=== PATIENT | male | born 1965 | race American Indian/Alaskan Native ===

== ENCOUNTER 2017-07-30 16:07 | Emergency (ER) | payer SELFPAY | END 2017-07-30 16:40 | disposition left against medical advice (07) | LOC: ED 16:07 | DX: M25.579 Pain in unspecified ankle and joints of unspecified foot (principal); Z53.21 Procedure and treatment not carried out due to patient leaving prior to being seen by health care provider ==

== ENCOUNTER 2019-01-23 10:19 | Day surgery (SDC) | payer MEDICAID ==
[~2019-01-23 10:19] MED LIST: NACL 0.9% 1000 ML 1,000 ML IV SCH
[2019-01-23] MEDS ORDERED: WATER FOR IRRIG STERILE ONE (10:59)
[2019-01-23] MEDS ORDERED: WATER FOR IRRIG STERILE IR ONE (10:59)
--- NOTE | 2019-01-23 12:38 | Anesthesia Consultation ---
Anesthesia Consult and Med Hx Date of service: 01/23/19 - Airway Anesthetic Teeth Evaluation: Good ROM Head & Neck: Adequate Mental/Hyoid Distance: Adequate Mallampati Class: Class III Intubation Access Assessment: Possibly Difficult - Pulmonary Exam CTA: Yes - Cardiac Exam Cardiac Exam: RRR - Pre-Operative Health Status ASA Pre-Surgery Classification: ASA3 Proposed Anesthetic Plan: MAC - Pulmonary Hx Asthma: Yes (last inhaler use 2 days ago, prn) SOB: Yes Home Oxygen Therapy: Yes (2.5L as needed) Hx Sleep Apnea: Yes (cpap) - Cardiovascular System Hx Hypertension: Yes (CHF ) - Central Nervous System CVA: Yes (Right side weakness) - Other Systems Hx Obesity: Yes
--- NOTE | 2019-01-23 12:39 | Anesthesia Day of Surgery ---
Anesthesia Day of Surgery - Day of Surgery Patient Examined: Yes Patient H&P Reviewed: Yes Patient is NPO: Yes Beta Blockers: Yes
[2019-01-23] MEDS ORDERED: DIPRIVAN 10 MG/ML IV ONE ×2 (12:42)
--- NOTE | 2019-01-23 13:25 | Discharge Summary ---
Short Stay Discharge Plan Activity: advance as tolerated Weight Bearing Status: Weight Bear as Tolerated Diet: regular Follow up with: PABLO ALICEA MD [Primary Care Provider] - 7 Days
--- NOTE | 2019-01-23 13:25 | Operative Report ---
Operative Report Operative Report: Date of procedure: 01/23/2019 Procedure: Colonoscopy with hot biopsy polypectomy. Attending physician: Matthew Ramsey MD Hr Receptionist: Matthew Ramsey MD Indication: Patient is a 53-year-old male who presents for colonoscopy, because of history of recurrent rectal bleeding and blood in stool. A colonoscopy serves to evaluate patient for colorectal cancer screening.. Consent: Informed consent was obtained after advising the patient and family regarding nature of this procedure, its indications, potential benefits as well as possible complications including but not limited to bleeding perforation and adverse reaction to medication, infection as well as other cardiopulmonary complications. An informed written and verbal consent was then obtained after due opportunity was provided for questions and answers. Monitoring: Patient was monitored continuously with pulse oximetry and electrocardiographic recordings as well as blood pressure recordings. Vital signs remained stable throughout this procedure with no untoward events. Preoperative assessment: Patient was assessed immediately prior to this procedure for capacity to tolerate monitored anesthesia care and moderate sedation as well as general anesthesia. Patient's ASA classification is 2, Mallampati class is 2, Hyomental distance is 3. Instrument: [employer] video colonoscope Medications: Propofol given intravenously in divided doses. For details please refer to anesthesia records. Description of procedure: Patient was placed in the left lateral decubitus position after achieving sedation, a digital rectal examination was performed following which the colonoscope was introduced into the anal verge and advanced to the cecum which was identified by the ileocecal valve, the appendiceal orifice, as well as by the cecal strap and direct transillumination. The colonoscope was subsequently withdrawn with careful inspection of all mucosal surfaces. Patient tolerated this procedure well and was subsequently taken to the recovery room. The following findings were noted. Findings: The colon was moderately tortuous. Patient had substantial retained thick liquid stool in the cecum and ascending colon transverse colon and descending colon. There were diverticula seen in the sigmoid colon and descending colon. Patient had a transverse colon polyp measuring approximately 5-7 mm. This was sessile. It was removed by hot biopsy polypectomy and retrieved. On the retroflex view at the anal verge, patient had internal hemorrhoids. Impression: Transverse colon polyp status post hot biopsy polypectomy Diverticular disease of the colon Retained stool Internal hemorrhoids. Plan: Follow pathology . If the polyp is adenomatous, will repeat colonoscopy in 5 years. For now will encourage high-fiber diet. Schedule patient for outpatient hemorrhoid band ligation
[2019-01-23 14:52] VITALS: BP 151/97
== END 2019-01-23 10:20 | disposition home or self-care (01) ==
LOC: GIO 10:19
PROVIDERS: ATTEND Internal Medicine Gastroenterology
DX: D12.3 Benign neoplasm of transverse colon (principal); K57.30 Diverticulosis of large intestine without perforation or abscess without bleeding; K64.8 Other hemorrhoids; I10 Essential (primary) hypertension; J45.909 Unspecified asthma, uncomplicated; G47.30 Sleep apnea, unspecified; M19.90 Unspecified osteoarthritis, unspecified site; Z98.890 Other specified postprocedural states; Z79.899 Other long term (current) drug therapy; Z91.81 History of falling; Z86.73 Personal history of transient ischemic attack (TIA), and cerebral infarction without residual deficits
CPT/HCPCS: 45384; 88305; J2704; J7030

== ENCOUNTER 2019-05-08 10:35 | Day surgery (SDC) | payer MEDICAID ==
[~2019-05-08 10:35] MED LIST changes: +DIPRIVAN 10 MG/ML IV ONE; -NACL 0.9% 1000 ML 1,000 ML IV SCH
[2019-05-08] MEDS ORDERED: NACL 0.9% 1000 ML 1,000 ML IV SCH (11:00)
--- NOTE | 2019-05-08 12:21 | Operative Report ---
Operative Report Operative Report: Date of procedure: 05/08/2019 Procedure: Esophagogastroduodenoscopy with multiple mucosal biopsies Attending physician: Matthew Ramsey MD Interventional Pain Physician: Matthew Ramsey MD Indication: Patient is a 53-year-old male who presents with a history of epigastric pain, indigestion and heartburn unresponsive to medical therapy. An upper endoscopy is done to assess patient so that treatment may be directed based on the findings. Consent: Informed consent was obtained after advising the patient and family regarding nature of this procedure, its indications, potential benefits as well as possible complications including but not limited to bleeding perforation and adverse reaction to medication, infection as well as other cardiopulmonary complications. An informed written and verbal consent was then obtained after due opportunity was provided for questions and answers. Monitoring: Patient was monitored continuously with pulse oximetry and electrocardiographic recordings as well as blood pressure recordings. Vital signs remained stable throughout this procedure with no untoward events. Preoperative assessment: Patient was assessed immediately prior to this procedure for capacity to tolerate monitored anesthesia care and moderate sedation as well as general anesthesia. Patient's ASA classification is 3, Mallampati class is 2, Hyomental distance is 3. Instrument: [employer] video endoscope Medications: Propofol given intravenously in divided doses. For details please refer to anesthesia records. Description of procedure: Patient was placed in the left lateral decubitus position after achieving sedation, the endoscope was introduced into the esophagus under direct vision. It was then advanced beyond the esophagus into the stomach and then beyond the stomach into the duodenum and to the second portion of the duodenum. It was subsequently withdrawn with careful inspection of all mucosal surfaces with the following findings. Findings: Patient had severe erosive esophagitis with linear ulcers in the distal esophagus. There was a non-luminally occluding early stricture of the gastroesophageal junction. There was a 2 cm sliding hiatal hernia seen on entry into the stomach. There was mild erythema in the gastric antrum. Biopsies of the antrum were obtained for histopathology, to rule out microscopic disease. The duodenum was normal to second portion. Impression: Severe erosive esophagitis Hiatal hernia Gastric antral erythema , Status post biopsies of the gastric antrum . Plan: Follow pathology report. Maintain antireflux measures Treatment with high-dose proton pump inhibitors Follow patient clinically or otherwise.
--- NOTE | 2019-05-08 12:21 | Discharge Summary ---
Short Stay Discharge Plan Activity: advance as tolerated Weight Bearing Status: Weight Bear as Tolerated Diet: regular Follow up with: PABLO ALICEA MD [Primary Care Provider] - 7 Days
[2019-05-08 12:55] VITALS: BP 111/57
--- NOTE | 2019-05-08 18:24 | Anesthesia Day of Surgery ---
Anesthesia Day of Surgery - Day of Surgery Patient Examined: Yes Patient H&P Reviewed: Yes Patient is NPO: Yes Beta Blockers: No Cardiac Clearance: No Pulmonary Clearance: No Avi's Test: N/A
--- NOTE | 2019-05-08 18:26 | Anesthesia Consultation ---
Anesthesia Consult and Med Hx - Airway Anesthetic Teeth Evaluation: Poor ROM Head & Neck: Adequate Mental/Hyoid Distance: Adequate Mallampati Class: Class III Intubation Access Assessment: Probably Good - Pulmonary Exam CTA: Yes - Cardiac Exam Cardiac Exam: RRR - Pre-Operative Health Status ASA Pre-Surgery Classification: ASA4 Proposed Anesthetic Plan: General, MAC - Pulmonary Hx Asthma: Yes SOB: Yes Hx Sleep Apnea: Yes (cpap) - Cardiovascular System Hx Hypertension: Yes (H/O CHF) - Central Nervous System CVA: Yes (Right side weakness) - Other Systems Hx Obesity: Yes
--- NOTE | 2019-05-08 18:27 | Post Anesthesia Evaluation ---
- Post Anesthesia Evaluation Patient Participated: Yes Airway Patent: Yes Stable Respiratory Function: Yes Nausea/Vomiting: No Temp > 96.8F: Yes Pain Manageable: Yes Adequeate Hydration: Yes Anesthesia Complications: No Block Receding Appropriately: Not Applicable Patient on Ventilator: No
== END 2019-05-08 10:36 | disposition home or self-care (01) ==
LOC: GIO 10:35
PROVIDERS: ATTEND Internal Medicine Gastroenterology
DX: K31.89 Other diseases of stomach and duodenum (principal); K21.0 Gastro-esophageal reflux disease with esophagitis; K44.9 Diaphragmatic hernia without obstruction or gangrene; R68.81 Early satiety; I11.0 Hypertensive heart disease with heart failure; I50.9 Heart failure, unspecified; J45.909 Unspecified asthma, uncomplicated; G47.30 Sleep apnea, unspecified; M19.90 Unspecified osteoarthritis, unspecified site; E66.9 Obesity, unspecified; Z79.899 Other long term (current) drug therapy; Z68.42 Body mass index [BMI] 45.0-49.9, adult; Z98.890 Other specified postprocedural states; Z91.81 History of falling; Z86.73 Personal history of transient ischemic attack (TIA), and cerebral infarction without residual deficits
CPT/HCPCS: 43239; 88305; 88342; J2704; J7030